=== PATIENT | male | born 1965 | race Two or more races ===

== ENCOUNTER 2025-01-09 08:26 | Day surgery (SDC) | payer MEDICAID, SELFPAY ==
[2025-01-08 13:41] VITALS: BMI 34.7
[2025-01-09] VITALS (10 sets, daily range): BP systolic 124–173; BP diastolic 75–95; PULSE 61–75; RESP 14–95; TEMP 36.5–36.7; O2SAT 95–100; BMI 32.5
[2025-01-09] MEDS: RINGERS LACTATED 500 ML 500 ML 20 ML IV (10:21)
[2025-01-09] MEDS: SIMETHICONE 40 MG/0.6 ML ORAL SYRINGE PO (10:22)
[2025-01-09] MEDS: fentaNYL CIT INJ 50 mCg/ML AMP 2ML (ASD USE ONLY) IVP (10:22)
[2025-01-09] MEDS: MIDAZOLAM INJ 1 MG/ML VIAL 2 ML (ASD USE ONLY) 2 MG IVP (10:22)
== END 2025-01-09 11:12 | disposition home or self-care (01) ==
PROVIDERS: PCP General Practice; Referring Provider Internal Medicine Gastroenterology; Visit Provider Internal Medicine Gastroenterology
PROC: 0DBE8ZX Excision of Large Intestine, Via Natural or Artificial Opening Endoscopic, Diagnostic (ICD-10-PCS; CPT 45380; principal; 2025-01-09 09:30)
DX: K52.9 Noninfective gastroenteritis and colitis, unspecified (principal); I10 Essential (primary) hypertension; K64.8 Other hemorrhoids; K31.A14 Gastric intestinal metaplasia without dysplasia, involving the cardia; K29.50 Unspecified chronic gastritis without bleeding
CPT/HCPCS: 45380; J2250; J3010; J7120; A9270

== ENCOUNTER 2025-01-11 07:05 | Day surgery (SDC) | payer MEDICAID, SELFPAY ==
[2025-01-11] VITALS (8 sets, daily range): BP systolic 102–164; BP diastolic 58–97; PULSE 62–77; RESP 12–25; TEMP 36.6–36.9; O2SAT 94–99; BMI 35.8
[2025-01-11] MEDS: RINGERS LACTATED 500 ML 500 ML 20 ML IV (08:15)
[2025-01-11] MEDS: MIDAZOLAM INJ 1 MG/ML VIAL 2 ML (ASD USE ONLY) 2 MG IVP (08:17)
[2025-01-11] MEDS: fentaNYL CIT INJ 50 mCg/ML AMP 2ML (ASD USE ONLY) IVP (08:17)
== END 2025-01-11 09:04 | disposition home or self-care (01) ==
PROVIDERS: PCP General Practice; Referring Provider Internal Medicine Gastroenterology; Visit Provider Internal Medicine Gastroenterology
PROC: (CPT 43239; principal; 2025-01-11 09:00)
DX: K29.70 Gastritis, unspecified, without bleeding (principal); K22.89 Other specified disease of esophagus; K44.9 Diaphragmatic hernia without obstruction or gangrene; I10 Essential (primary) hypertension
CPT/HCPCS: 43239; A4649; J1200; J2250; J3010; J7120